=== PATIENT | male | born 1995 | race Caucasian/White ===

== ENCOUNTER 2025-06-10 12:22 | Emergency (ER) | payer OTHER, SELFPAY ==
[2025-06-10 12:32] VITALS: BP 114/53; PULSE 122; RESP 24; TEMP 36.9; O2SAT 96; BMI 25.0
--- NOTE | 2025-06-10 12:34 | XR_ITS ---
FINAL REPORT CLINICAL HISTORY: AMS FINDINGS: A single PA view of the chest was obtained. There is no prior exam for comparison. The cardiac and mediastinal silhouettes are within normal limits. There are low lung volumes, otherwise the lungs are clear. There is no effusion or pneumothorax. IMPRESSION: No radiographic evidence of acute cardiac or pulmonary disease on this single view of the chest. Reviewed, Interpreted and Dictated by Maya Izquierdo MD Transcribed by Ligia Mayberry Authenticated and [facility]
--- NOTE | 2025-06-10 12:34 | CT_ITS ---
FINAL REPORT TECHNIQUE: Thin section axial images were obtained from skull base to vertex without contrast. Coronal reconstruction images were obtained from the axial data. Exam was performed using dose reduction techniques such as automated exposure control, adjustment of the mA and kV according to patient size, and use of iterative reconstruction technique. CLINICAL HISTORY: AMS COMPARISON: None FINDINGS: The exam is limited by motion. There is no mass effect or midline shift. There is no hydrocephalus. There is no convincing intracranial hemorrhage. The posterior fossa is without acute abnormality. The basilar cisterns are preserved. There is no acute osseous abnormality or soft tissue abnormality within the limitations of the exam. IMPRESSION: No mass effect, midline shift or convincing hemorrhage, but the exam is limited by motion. Reviewed, Interpreted and Dictated by Maya Izquierdo MD Transcribed by Ligia Mayberry Authenticated and [facility]
--- NOTE | 2025-06-10 12:35 | ED_ITS ---
Discharge Plan Disposition Patient Disposition: Home, Self-Care Referrals Follow up/Referrals: Provider,Referral, MD [Primary Care Provider, Medical] - See instructions Activity Restrictions/Add. Instructions Additional Instructions/Restrictions: Avoid marijuana or other substance use in the future. Clinical Impressions Clinical Impression: Marijuana use Print Language Print Language: Danish Discharge ED Provider: Sylvester Lang General Adult HPI General Chief complaint: Medical Clearance Stated complaint: MC Time Seen by Provider: 06/10/25 12:24 Mode of Arrival: Carried (Police) Source of Information: Patient and Law Enforcement Limitations: No Limitations History of Present Illness HPI narrative: Rob Stroud is a 30-year-old male who presents to the emergency department via law enforcement for concern for altered mental status. Patient believes that he is in [place] and is having visual hallucinations, talking about a person in the corner of the room that is not there. Patient also believes bugs are crawling on him. He denies any tobacco, alcohol or recreational drug use. He is oriented to self at this time and is asking if he can go back to [place]. No other history is known at this time. Related Data Allergies Allergy/AdvReac Type Severity Reaction Status Date / Time Unable to Assess Allergy Verified 06/10/25 12:41 [facility] Disclaimer: The information contained in this section may have been updated after the patient was seen, as this information can be updated by other users. Social History Smoking Status: Unknown if ever smoked alcohol intake: never current occupational status: other details: Unknown Travel in the last 8 weeks?: None ROS Obtained: Yes Systems reviewed as appropriate & no additional complaints except as documented Physical Exam General General appearance: alert and in no apparent distress Head Head exam: atraumatic Eye Eye exam: Present normal appearance ENT ENT exam: Present normal external ear exam Neck Neck exam: Present full ROM Chest Chest inspection: Present symmetric chest wall rise Respiratory Respiratory exam: Present normal lung sounds bilaterally; Absent respiratory distress, wheezes or stridor Cardiovascular Cardiovascular exam: Present regular rate and normal rhythm Abdominal Exam Abdominal exam: Present soft; Absent tenderness or guarding exam: Present deferred Extremities Exam Extremities exam: Present normal inspection Back Exam Back exam: Present normal inspection; Absent CVA tenderness (R) or CVA tenderness (L) Neurological Exam Neurological exam: Present alert; Absent oriented X3 (Oriented to self but not location or year. No focal neurological deficit. Following commands.) Psychiatric Psychiatric exam: Present normal mood and other (Appears under the influence of substances) Skin Skin exam: Present warm and dry Medical Decision Making Medical Records Screening: Per USPSTF and CDC recommendations, given the prevalence of disease in our region, it is our hospital?s policy to screen for HIV and viral Hepatitis for all patients aged 18 and over and those with ongoing risk factors. Bart Inquiry Pt receiving controlled substance: No Vital Signs: 06/10/25 12:32 06/10/25 12:40 06/10/25 12:43 Temperature 98.5 F 98.5 F Temperature Source Oral Oral Pulse Rate 122 H 104 H Pulse Rate [Right] 122 H Respiratory Rate 24 24 Blood Pressure 114/53 L 121/64 Blood Pressure [Right Arm] 114/53 L Blood Pressure Mean [Right Arm] 73 Blood Pressure Source Automatic Cuff Blood Pressure Source [Right Arm] Manual Cuff/ Auscultation Blood Pressure Position Supine 02 Sat by Pulse Oximetry 96 96 96 Oxygen Delivery Method Room Air Lab Data Lab Results 06/10/25 12:47: WBC 6.6, RBC 5.08, Hgb 13.2 L, Hct 39.9 L, MCV 78.5 L, MCH 26.0 L, MCHC 33.1, RDW 12.9, Plt Count 245, MPV 11.1 H, Neut % (Auto) 53.9, Lymph % (Auto) 34.7, [place] % (Auto) 8.3, Eos % (Auto) 1.1, Baso % (Auto) 1.8, Neut # (Auto) 3.6, Lymph # (Auto) 2.3, [place] # (Auto) 0.6, Eos # (Auto) 0.1, Baso # (Auto) 0.1, Sodium 137, Potassium 4.2, Chloride 105, Carbon Dioxide 26, Anion Gap 10.2, BUN 24 H, Creatinine 1.10, Estimated Creat Clear 102, Estimated GFR 79, Est GFR ( Amer) 96, Glucose 108 H, Calcium 9.4, Magnesium 1.5 L, Total Bilirubin 0.5, AST 34, ALT 17, Alkaline Phosphatase 81, Total Protein 7.3, Albumin 4.1, Globulin 3.2, Albumin/Globulin Ratio 1.3, Free T4 0.92, Plasma/Serum Alcohol < 10 06/10/25 13:54: Urine Color Yellow, Urine Appearance Clear, Urine pH 6.0, Ur Specific [place] 1.025, Urine Protein Negative, Urine Glucose (UA) Negative, Urine Ketones Negative, Urine Blood Negative, Urine Nitrate Negative, Urine Bilirubin Negative, Urine Urobilinogen 0.2, Ur Leukocyte Esterase Negative, Urine RBC None, Urine WBC None, Ur Squamous Epith Cells None, Urine Bacteria None, Urine Opiates Screen Negative, Urine Methadone Screen Negative, Ur Barbituates Screen Negative, Ur Phencyclidine Scrn Negative, Ur Amphetamines Screen Negative, U Benzodiazepines Scrn Negative, Urine Cocaine Screen Negative, U Marijuana (THC) Screen Positive H 06/10/25 12:47 06/10/25 12:47 Orders (Tests/Meds): ED MEDICATIONS Discontinued Medications Generic Name Dose Route Start Last Admin Trade Name Freq PRN Reason Stop Dose Admin Lactated Ringer's 500 mls @ 999 mls/hr 06/10/25 14:05 06/10/25 14:13 Lactated Ringer's 500ml IV 06/10/25 14:35 Not Given .Q31M ONE ORDERS Category Date Time Status CT head/brain wo con Stat Cat Scan 06/10/25 12:34 Completed Consult Oncology Patient Navigator [CONS] Routine Cons 06/10/25 15:15 Active CXR --portable [XR chest portable] Stat Exams 06/10/25 12:34 Completed CBC w/Auto Diff [Complete Blood Count Auto Diff] Stat Lab 06/10/25 12:47 Completed CMP [Comprehensive Metabolic Panel] Stat Lab 06/10/25 12:47 Results Ethyl Alcohol Stat Lab 06/10/25 12:47 Completed Free T4 (Free Thyroxine) Stat Lab 06/10/25 12:47 Completed Magnesium Stat Lab 06/10/25 12:47 Results TSH [Thyroid Stimulating Hormone] Stat Lab 06/10/25 12:47 Results UA [Urinalysis and Microscopic] Stat Lab 06/10/25 13:54 Completed UDS [Drug Screen,Urine] Stat Lab 06/10/25 13:54 Completed Medical Decision Narrative: Rob Stroud is a 30-year-old male who presents to the emergency department via law enforcement for concern for altered mental status. Patient believes that he is in [place] and is having visual hallucinations, talking about a person in the corner of the room that is not there. Patient also believes bugs are crawling on him. He denies any tobacco, alcohol or recreational drug use. He is oriented to self at this time and is asking if he can go back to [place]. No other history is known at this time. On arrival, patient is normotensive, mildly tachycardic, reading 24 times a minute but oxygen saturation 96% on room air. Afebrile. Physical exam, stated above, revealed male in no distress. He is alert, sitting upright in his stretcher. He does appear under the influence of some substance. He is alert to self but not location or year. He has no complaints at this time. Abdomen soft, nontender nondistended. Cardiopulmonary exam is unremarkable. He has no evidence of traumatic findings to his extremities or head. His neurological exam is grossly nonfocal and he is redirectable and will follow commands. Differential diagnosis includes, but is not limited to: Substance use, alcohol intoxication, intracranial hemorrhage, acute psychosis, electrolyte derangement, metabolic derangement, among others. The most morbid conditions were considered and workup was based on these. Workup in the emerged part included: CT head without contrast, UA, UDS, alcohol level, CBC with differential, CMP, magnesium level, free T4, TSH chest x-ray, CT imaging interpreted by me personally. No evidence of intracranial hemorrhage, mass or midline shift. There is some motion artifact on the superior aspect of the CT. See final radiology report for details. Chest x-ray interpreted by me personally. No focal consolidations, no pneumothorax, no widening the mediastinum, enlarged cardiac silhouette. See final radiology report for details. Laboratory studies interpreted by me personally. No leukocytosis, mildly low hemoglobin of 13.2 and hematocrit 39.9 but nonactionable. Platelets normal at 245. Electrolytes within normal limits. BUN mildly elevated at 24 but no BAMBI. Magnesium very mildly low at 1.5 but nonactionable. Free T4 normal at 0.92. No evidence of urinary tract infection, blood or protein in urine. UDS positive for marijuana and negative for all other substances. Spoke to patient's mental status is best explained by marijuana use. He has remained stable throughout his ED visit and his workup is otherwise negative. He is appropriate for discharge at this time. Patient structured to avoid marijuana use in the future. Critical Care Critical Care Time Critical Care Time: No
[2025-06-10 12:40] VITALS: BP 114/53; PULSE 122; RESP 24; TEMP 36.9; O2SAT 96
[2025-06-10 12:43] VITALS: BP 121/64; PULSE 104; O2SAT 96
[2025-06-10 12:54] LABS: Hematocrit 39.9 % (42.0-52.0); Hemoglobin 13.2 g/dL (14.1-18.0); Immature Granulocytes % 0.2 %; Mean Corpuscular HGB Conc 33.1 g/dL (31.8-35.4); Mean Corpuscular Hemoglobin 26.0 pg (27.0-31.2); Mean Corpuscular Volume 78.5 fl (80-94); Nucleated Red Blood Cells % 0 %; Platelet Count 245 K/mm3 (142-424); Red Blood Count 5.08 M/mm3 (4.60-6.20); Red Cell Distribution Width-SD 36.8 fL; White Blood Count 6.6 K/mm3 (4.8-10.8)
[2025-06-10 13:03] LABS: Albumin Level 4.1 g/dl (3.5-5.0); Chloride 105 mmol/L (98-107)
[2025-06-10 13:04] LABS: Potassium 4.2 mmoL/L (3.5-5.1); Sodium 137 mmol/L (136-145)
[2025-06-10 13:06] LABS: Alanine Aminotransferase 17 U/L (12-78); Alkaline Phosphatase 81 U/L (38-126); Anion Gap 10.2 mEq/L (5-15); Aspartate Amino Transferase 34 U/L (17-59); Bilirubin,Total 0.5 mg/dl (0.2-1.3); Blood Urea Nitrogen 24 mg/dl (9-20); Carbon Dioxide 26 mmol/L (22.0-30.0); Creatinine Clearance Estimated 102 mL/min (50-200); Creatinine,Serum 1.10 mg/dl (0.66-1.25); Estimated Glomerular Filt Rate 79 ml/min (>60); GFR (African American) 96 ML/MIN (>60)
[2025-06-10 13:07] LABS: Albumin/Globulin Ratio 1.3 (1.1-1.8); Calcium 9.4 mg/dl (8.4-10.2); Globulin 3.2 g/dL (1.3-3.2); Glucose 108 mg/dl (74-100); Magnesium 1.5 mg/dl (1.6-2.3); Total Protein,Serum 7.3 g/dl (6.3-8.2)
[2025-06-10 13:55] LABS: Free T4 (Free Thyroxine) 0.92 ng/dl (0.78-2.19)
[2025-06-10 14:13] LABS: Microscopic, Urine URINE MICROSCOPIC (MICROSCOPIC)
--- NOTE | 2025-06-10 14:13 | PC.NURSE ---
Went in room to start IV for fluid administration, patient refused IV and fluids
[2025-06-10 14:31] LABS: Bilirubin,Urine Negative (Negative); Color,Urine YELLOW (Yellow); Glucose,Urine (UA) Negative (Negative); Ketones,Urine Negative (Negative); Leukocyte Esterase,Urine Negative (Negative); PH,Urine 6.0 (5.0-8.5); Protein,Urine Negative (Negative); Specific Gravity, Urine 1.025 (1.005-1.030); Urobilinogen,Urine 0.2 EU/dl (0.2)
[2025-06-10 14:47] LABS: Benzodiazepines Screen,Urine Negative ng/ml (<200)
[2025-06-10 14:48] LABS: Amphetamine/Metha Screen,Urine Negative ng/ml (<1000); Barbiturates Screen,Urine Negative ng/ml (<200)
[2025-06-10 14:50] LABS: Methadone Screen,Urine Negative ng/ml (<300)
[2025-06-10 14:51] LABS: Opiate Screen,Urine Negative ng/ml (<300)
[2025-06-10 14:52] LABS: Phencyclidine Screen,Urine Negative ng/ml (<25)
--- NOTE | 2025-06-10 14:58 | PC.NURSE ---
Assisted patient to the restroom to void. Assisted back in bed with rails up and call light within reach.
[2025-06-10 15:25] VITALS: BP 95/54; PULSE 55; RESP 16; TEMP 36.9; O2SAT 97
[2025-06-10 16:00] LABS: Thyroid Stimulating Hormone 1.75 uIU/mL (0.465-4.68)
== END 2025-06-10 15:32 | disposition home or self-care (01) ==
PROVIDERS: Emergency Provider Student in an Organized Health Care Education/Training Program
DX: R41.82 Altered mental status, unspecified (principal); F12.90 Cannabis use, unspecified, uncomplicated
CPT/HCPCS: 70450; 71045; 80053; 80307; 80320; 81001; 83735; 84439; 84443; 85025; 99284